=== PATIENT | female | born 1980 | race African-American/Black ===

== ENCOUNTER 2021-05-26 00:01 | Emergency (ER) | payer SELFPAY ==
[~2021-05-26] VITALS: Ht 170.2 cm; Wt 77.1 kg
[2021-05-26 00:59] LABS: HEMATOCRIT 40.1 % (31.2-41.9); MEAN CORPUSCULAR VOLUME 89.3 fL (75.5-95.3); PLATELET COUNT (AUTO) 389 K/uL (179-408)
--- NOTE | 2021-05-26 01:05 | NUR ---
Pt refused to havem monitor reapplied when asked if she kindly move with care so leads do not get pulled. Pt states "I have to move, I can't just lay here and not move."
[2021-05-26 01:09] LABS: CREATININE 0.7 mg/dL (0.6-1.3); POTASSIUM 3.3 mmol/L (3.5-5.1)
[2021-05-26 01:20] LABS: BILIRUBIN,DIRECT 0.1 mg/dL (0.0-0.2); BILIRUBIN,TOTAL 0.4 mg/dL (0.2-1.0); TOTAL PROTEIN, SERUM 8.4 g/dL (6.4-8.2)
--- NOTE | 2021-05-26 03:24 | NUR ---
Attempted to discharge patient, pt states that the doctor did not come talk to her. Informed Dr. Matamoros, Dr. Matamoros went to bedside. While Dr. Matamoros was speaking to patient pt stated me "stop, please stop I know what you are doing." Pt made aware that I am just awaiting for MD to finish speaking to her so that I can discharge her, pt stated "stop I can listen I am 41."
--- NOTE | 2021-05-26 03:24 | NUR ---
Patient noted to be rude and hostile towards me.
--- NOTE | 2021-05-26 03:34 | NUR ---
IV removed. Catheter intact and site benign. Pressure and 4x4 gauze applied to site. No bleeding noted.
--- NOTE | 2021-05-26 03:40 | NUR ---
Per Dr. Matamoros, pt stable for discharge. Pt noted to be resistant with discharge, and resistant to after care instructions. LORENA boland.
== END 2021-05-26 03:40 | disposition home or self-care (01) ==
LOC: ER 00:16
DX: R07.9 Chest pain, unspecified (principal); R60.0 Localized edema; E87.6 Hypokalemia; Z88.0 Allergy status to penicillin
CPT/HCPCS: 36415; 70030-TC; 71045; 76857; 85025; 93005; A4663